=== PATIENT | female | born 1990 | race Two or more races ===

== ENCOUNTER 2020-08-20 05:31 | Emergency (ER) | payer OTHER, SELFPAY ==
[2020-08-20 05:36] VITALS: BP 138/84; PULSE 80; RESP 18; TEMP 37; O2SAT 100; BMI 34.2
[2020-08-20 05:49] LABS: Basophils Percent Auto 0.4 % (0-2); Eosinophils Absolute Auto 0.1 X10*3/uL (0.0-0.4); Eosinophils Percent Auto 1.2 % (0-4); Hematocrit 39.8 % (37-47); Hemoglobin 12.7 g/dl (12.0-16.0); Imm Gran Abs Auto 0.02 X10*3/uL (0.00-0.03); Imm Gran Pct Auto 0.4 % (0.0-0.4); Lymphocytes Absolute Auto 1.5 X10*3/uL (1.2-4.9); Lymphocytes Percent Auto 25.8 % (20-40); MANUAL DIFF FLAG NO; Mean Corpuscular HGB Conc 31.9 g/dl (31.0-35.0); Mean Corpuscular Hemoglobin 27.7 pg (27.0-33.0); Mean Corpuscular Volume 86.9 fL (80-98); Mean Platelet Volume 9.4 fL (9.4-12.3); Monocytes Absolute Auto 0.4 X10*3/uL (0.1-1.2); Monocytes Percent Auto 6.8 % (2-11); Neutrophils Absolute Auto 3.7 X10*3/uL (2.0-8.3); Neutrophils Percent Auto 65.4 % (45-73); Platelet Count 232 X10*3/uL (160-400); Red Blood Count 4.58 X10*6/uL (4.20-5.50); Red Cell Distribution Width 13.2 % (11.0-16.0); White Blood Count 5.6 X10*3/uL (4.8-10.8)
--- NOTE | 2020-08-20 06:06 | PC.NURSE ---
This scientific technical writer protocolled lab work to assist with midigating wait time. Pt then stated to this rn, that she had waited 1/2 hr and did not want to wait any longer. This scientific technical writer attempted to convince patient to remain in ED for evaluation. Pt stated she would rather go home. Patient ambulated with steady gait to exit. Pt appeared in no apparent distress. Time 0606.
[2020-08-20 06:13] LABS: Alanine Aminotransferase 21 U/L (0-31); Albumin Level 4.6 g/dL (3.5-5.0); Alkaline Phosphatase 85 U/L (39-117); Anion Gap 16 (12-20); Aspartate Amino Transferase 15 U/L (5-31); Bilirubin Total < 0.2 mg/dL (0.0-1.0); Blood Urea Nitrogen 13 mg/dL (9-16); Calcium 9.2 mg/dL (8.4-10.2); Carbon Dioxide 24 mmol/L (22-29); Chloride 104 mmol/L (96-108); Creatinine Clr Calc Pharmacy 102.3; Estimated Glomerular Filt Rate > 60; Glucose Random 128 mg/dL (60-115); Lipase 16 U/L (8-78); Sodium 140 mmol/L (135-145); Total Protein 7.3 g/dL (6.5-8.0)
== END 2020-08-20 06:16 | disposition left against medical advice (07) ==
PROVIDERS: Emergency Provider Emergency Medicine
DX: R10.9 Unspecified abdominal pain (principal); R11.10 Vomiting, unspecified
CPT/HCPCS: 36415; 80053; 83690; 85025; 99282; 99283

== ENCOUNTER 2024-11-20 15:55 | Outpatient (AMB) | payer OTHER, SELFPAY ==
--- OUTSIDE RECORDS SUMMARY | 2024-11-20 15:58 | XMS_ITS | Clinical Summary ---
Author Organization [facility] Address [address] [place] [phone] Phone Care Team Providers Care Hotel Services Sales Representative Name Role Phone Pcp, Unknown Primary Care Provider Unavailabl e Allergies No known active allergies Medications ondansetron (ZOFRAN-ODT) 4 MG disintegrating tablet Take 1 tablet (4 mg total) by mouth every 8 (eight) hours as needed for nausea. 10 tablet Active Social History Tobacco Use Types Packs/Day Years Used Date Smoking Tobacco: Never Assessed Education Answer Date Recorded Are you interested in more education? Not on drake e 09/01/2022 Are you concerned about learning? Not on file 09/01/2022 No 09/01/2022 No 09/01/2022 Digital Access Answer Date Recorded No 10/02/2022 No 10/02/2022 Reliable internet access at home? Not on file 10/02/2022 Device with a working camera? Not on file Comments Unknown Sex and Gender Information Value Date Recorded Sex Assigned at Not on file Legal Sex Female 6:24 AM EDT Gender Identity Not on file Sexual Orientation Not on file Last Filed Vital Signs Vital Sign Reading Time Taken Comments Blood Pressure 126/86 08/20/2020 9:30 AM EDT Pulse 74 08/20/2020 6:31 AM EDT Temperature 36.9 C (98.4 F) 08/20/2020 6:31 AM EDT Respiratory Rate 18 08/20/2020 9:30 AM EDT Oxygen Saturation 99% 08/20/2020 9:30 AM EDT Inhaled Oxygen Concentration - - Weight 76.7 kg (169 lb) 08/20/2020 6:31 AM EDT Height 152.4 cm (5') 08/20/2020 6:31 AM EDT Body Mass Index 33.01 08/20/2020 6:31 AM EDT Plan of Treatment Not on file Medical Devices Not on file Insurance [address] [place], [place] [id number] [place], [place] [id number] [facility] Member Subscriber Plan / Payer (Ef fective 2020-Present) Name:Oanh Burkett Relation to Subscriber:Self Name:Oanh Burkett Payer ID:Not on file Type:HMO Address: [place] [id number] [facility] [address] [address] [address] [place] [address] HMO Care Teams Hotel Services Sales Representative Relationship Specialty Start Date End Date Pcp, Unknown PCP - General 08/20/20 Additional Source Comments The information contained in this document represents components of the legal health record. It is not the complete legal health record.[facility]
[2024-11-20 16:01] VITALS: BP 122/74; PULSE 80; O2SAT 97; BMI 39.1
--- NOTE | 2024-11-20 16:01 | AM.OFFWIN_ITS ---
Intake Vital Signs 11/20/24 16:01 Height 5 ft Weight 200 lb BMI 39.1 BP 122/74 Blood Pressure Location Lt brachial Position Sitting Pulse 80 Pulse Source Pulse Oximeter Pulse Oximetry (%) 97 Oxygen Delivery Method Room Air Intake Visit Reasons: EP Bump on RT breast Intake Note: pt is here for right breast bump, since 3 days ago. denies injury or any discharge. patient states theres redness, hot to touch, and some swelling Allergies No Known Allergies Allergy (Verified 11/20/24 16:02) Do you need a note to return to daycare/school/sports/work: No HPI HPI Comments History of Present Illness Details This is a 34-year-old female presenting for evaluation of pain and redness on her right breast that she first noticed 3 days ago. She has an 8 month old son however has not breast fed for the past 7 months. She denies having any fevers or chills however states the pain has worsened and the redness has spread. Patient denies having any nipple discharge. [facility] Medical History (Updated 11/20/24 @ 16:38 by Denise Nelson PA-C) No active medical problems Surgical History (Updated 08/20/20 @ 05:39 by Tahmina Escalante) Previous section Review of Systems Const All systems reviewed & are unremarkable except as noted in HPI and below Reports no additional complaints Eyes Reports no additional complaints ENT Reports no additional complaints Card Reports no additional complaints Resp Reports no additional complaints GI Reports no additional complaints Reports no additional complaints Musc Reports no additional complaints Skin/Breast Reports breast skin changes, Reports breast pain, Reports breast mass and Reports erythema Neuro Reports no additional complaints Psych Reports no additional complaints Endo Reports no additional complaints Lawrence/Lymph Reports no additional complaints Aller/Immun Reports no additional complaints Physical Exam Vital Signs: BMI result Body Mass Index 39.1 Const General: cooperative, healthy appearing, comfortable, no acute distress, well developed, alert, awake and Physically active; No ill appearing Nutritional Appearance: well nourished Orientation/consciousness: patient oriented x3 Limitations: no limitations Skin Other: There is macular erythema extending laterally from the right breast with a 1.5cm indurated lesion at the 10:00 position of the right areola that is tender to touch. No fluctuance or discharge. Erythema extends 7cm laterally from the right areola and surrounds the superior aspect of the areola with a total dimension of 13cm. Lesion is warm and tender to touch. No nipple discharge from the right breast. Neuro General: patient oriented x3 Psych Appearance: grossly normal Mental Status: mental status grossly normal Insight: Good insight present (Psych) Judgement: Good judgement present (Psych) Assessment & Plan Assessment & Plan (1) Periductal mastitis of right breast: Comment: Margins of the erythema are marked with a surgical marker. Cellulitis vs. Pe riductal Mastitis. Patient will be discharged home with antibiotic therapy and strict return precautions. Code(s): N60.41 - Mammary duct ectasia of right breast Plan: Augmentin 875 mg b.i.d. x7 days, Tylenol as needed for discomfort and warm compresses 4-5 times daily. Recommend follow up with PCP or walk-in clinic in 3-4 days, sooner for significant worsening of the erythema. Medications: New amoxicillin-pot clavulanate 875-125 mg 1 tab PO BID 14 tabs 0RF Coding Level of Care Code New Pt Level 4 (27335) Diagnoses Periductal mastitis of right breast N60.41
== END 2024-11-20 16:22 | disposition home or self-care (01) ==
PROVIDERS: Visit Provider Physician Assistant
DX: N60.41 Mammary duct ectasia of right breast (principal)

== ENCOUNTER → 2024-11-20 15:55 | Outpatient (BNVA) | payer OTHER, SELFPAY | PROVIDERS: Visit Provider Physician Assistant | DX: N60.41 Mammary duct ectasia of right breast (principal) | CPT/HCPCS: 99202 ==

== ENCOUNTER 2024-11-22 08:37 | Emergency (ER) | payer OTHER, SELFPAY ==
--- NOTE | ~2024-11-22 | US_ITS ---
CLINICAL HISTORY: ? abscess Limited soft tissue ultrasound, right breast. Indication: Infection. Comparison: None. Findings: A region of erythema at a proximally 10:00 a.m., 4 cm from the nipple is imaged. There is an ovoid, ill-defined phlegmonous region with peripheral vascularity and small pockets of fluid. A tract is noted to the skin surface. Impression: Irregular, peripherally vascular phlegmonous change with developing abscess and drainage tract to the skin surface. Mammographic follow-up is recommended to ensure resolution and exclude inflammatory breast cancer although this is considered extremely unlikely. This document has been electronically signed by: Geoffrey Forde MD on 11/22/2024 10:32:39
[2024-11-22 08:39] VITALS: BP 121/68; PULSE 75; RESP 16; TEMP 36.2; O2SAT 98; BMI 37.8
--- NOTE | 2024-11-22 08:56 | ED.GENADULT ---
HPI - General Adult General Chief complaint: General Medical Stated complaint: R Side Breast Pain Mastitis Time Seen by Provider: 11/22/24 08:56 Source: patient, RN notes reviewed and old records reviewed Mode of arrival: ambulatory Limitations: no limitations History of Present Illness ED Provider: Jean-Claude HPI narrative: Patient is a 34y/o female presenting to the emergency department with complaint of ongoing right breast pain, with associated purulent/sanguinous drainage for the past 5 days. Seen on 11/20 and started on Augmentin. He states that she has taken 3 doses if he Augmentin thus far, 1 Saturday night and 2 yesterday. States that the drainage is new. Has not been breast-feeding for the past 8 months. Complains of severe pain to the area. Denies fevers, chills, body aches. MD complaint: right breast pain Onset (ago): day(s) Related Data Previous Rx's ?Medication ?Instructions ?Recorded amoxicillin 875 mg-potassium 1 tab PO BID #14 tabs 11/20/24 clavulanate 125 mg tablet doxycycline hyclate 100 mg tablet 100 mg PO BID #14 tabs 11/22/24 Allergies Allergy/AdvReac Type Severity Reaction Status Date / Time No Known Allergies Allergy Verified 11/22/24 08:40 Review of Systems Review of Systems: As per hpi Yes all other systems are reviewed and are negative Constitutional: Constitutional: Reports as per HPI [facility] Past Medical History Medical History (Updated 11/22/24 @ 11:17 by Flores Bermeo NP) No active medical problems Surgical History (Updated 08/20/20 @ 05:39 by Tahmina Escalante) Previous section Social History Social History Advance Directives: No Advance Directives Information Provided: No Physical Exam ED Vital Signs: Vital Signs - 24 hr 11/22/24 08:39 11/22/24 10:00 Temperature 97.2 F 98.5 F Pulse Rate 75 77 Respiratory Rate 16 18 Blood Pressure 121/68 103/70 Pulse Oximetry 98 97 Oxygen Delivery Method Room Air Room Air BMI result Body Mass Index 37.8 Vital signs have been reviewed and appear to be correct. Blood pressure normal. Heart rate normal. Respiratory rate normal. Temperature normal. Oxygen saturation normal. Const General: cooperative, healthy appearing and no acute distress Orientation/consciousness: oriented to person, oriented to place, oriented to time and patient oriented x3 Limitations: no limitations HENMT Head: Yes normocephalic and Yes atraumatic Ears: external ears normal General nose exam: Normal external nose present Face and sinus: Yes face symmetric Mouth: oropharynx normal and moist mucous membranes Throat: Yes uvula midline Eyes Pupils: Equal, round and reactive pupils present Neck Neck: Yes normal visual inspection and Yes supple Chest Other: Exam chaperoned by ROSA Vital. Chest/axillae images:  1. large area of erythema and warmth to right lateral breast with central abscess draining purulent/sanguinous fluid, extremely TTP Resp Effort & Inspection: normal respiratory effort and able to speak in complete sentences Auscultation: clear to auscultation bilaterally Cardio Rate: regular rate Rhythm: regular rhythm Heart sounds: S1 normal heart sound present and S2 normal heart sound present GI Palpation (GI): Soft to palpation and nontender Auscultation: normoactive bowel sounds General: Yes no CVA tenderness Back/Spine/Pelvis Back: no CVA tenderness Skin General skin exam: elasticity normal and turgor normal Neuro General: oriented to person, oriented to place, oriented to time, patient oriented x3, moves all extremities, no focal motor deficits and CN's II-XI intact bilaterally Cranial nerves: Yes Equal, round and reactive pupils present Cognition (Neuro): normal cognition Extrem General: Yes full ROM, Yes no pedal edema and Yes no calf tenderness Psych Mental Status: mental status grossly normal Affect: normal affect Thought process: Normal thought process present Medications Administered Discontinued Medications Generic Name Dose Route Start Last Admin Trade Name Filiberto PRN Reason Stop Dose Admin Ondansetron HCl 4 mg 11/22/24 09:15 11/22/24 09:33 Ondansetron Odt 4 Mg Tab.Rapdis TRANSLINGU 11/22/24 09:16 4 mg ONCE ONE Administration Oxycodone HCl 5 mg 11/22/24 09:15 11/22/24 09:33 Oxycodone Hcl Immed Release 5 Mg Tablet PO 11/22/24 09:16 5 mg ONCE ONE Administration Medical Decision Making Medical Decision Making [facility] Narrative: Patient is a 34y/o female presenting to the emergency department with complaint of ongoing right breast pain, with associated purulent/sanguinous drainage for the past 5 days. On exam patient is awake, A+Ox3, VS WNL, afebrile, normal neurological exam without focal deficits, physical exam findings as above. Given reported symptoms and physical exam findings, initial differential includes but is not limited to cellulitis, abscess, deep space infection. Labs notable for slight leukocytosis, no significant electrolyte abnormalities. Abscess is spontaneously draining. U/S notable for irregular, peripherally vascular phlegmonous region with developing abscess, with drainage tract to skin surface. My interpretation is in agreement with the radiologist's interpretation. Results discussed with patient and all questions answered. Will add doxycycline for additional coverage. Advised patient to monitor the area closely, multiple times per day for any spreading of erythema or warmth outside of the outlined area, or fevers/chills and to return if this occurs. Will refer to general surgery if area stops draining spontaneously. Follow up with PCP. Patient verbalized understanding of and agreement with plan. Differential Diagnosis Differential Diagnoses: The differential diagnosis associated with the presentation includes As per [facility] Admission/Observation Consideration of admission/observation: Escalation of care including admission/observation considered Patient would have been admitted to the hospital had their clinical presentation warranted hospital admission. Lab Data [facility] Lab Attestation statement: I reviewed the patient's lab results. As per [facility] 11/22/24 08:59 11/22/24 08:59 Labs: Lab Results 11/22/24 11/22/24 Range/Units 08:59 09:37 WBC 10.9 H (4.8-10.8) X10*3/uL RBC 4.48 (4.20-5.50) X10*6/uL Hgb 12.1 (12.0-16.0) g/dl Hct 37.0 (37.0-47.0) % MCV 82.6 (80.0-98.0) fL MCH 27.0 (27.0-33.0) pg MCHC 32.7 (31.0-35.0) g/dl RDW 14.6 (11.0-16.0) % Plt Count 264 (160-400) X10*3/uL MPV 9.3 L (9.4-12.3) fL Immature Gran % (Auto) 0.6 H (0.0-0.4) % Neut % (Auto) 67.8 (45-73) % Lymph % (Auto) 21.9 (20-40) % Shannon % (Auto) 6.9 (2-11) % Eos % (Auto) 2.3 (0-4) % Baso % (Auto) 0.5 (0-2) % Lymph # (Auto) 2.4 (1.2-4.9) X10*3/uL Shannon # (Auto) 0.8 (0.1-1.2) X10*3/uL Eos # (Auto) 0.3 (0.0-0.4) X10*3/uL Baso # (Auto) 0.1 (0.0-0.2) X10*3/uL Abs Immat Gran (auto) 0.07 H (0.00-0.03) X10*3/uL Absolute Neuts (auto) 7.4 (2.0-8.3) x10*3/uL Absolute Nucleated RBC 0.000 (0.0-0.012) X10*3/uL Nucleated RBC % (auto) 0.0 (0.0-0.2) /100WBC Sodium 139 (135-145) mmol/L Potassium 4.6 (3.3-5.1) mmol/L Chloride 109 H (96-108) mmol/L Carbon Dioxide 23 (22-29) mmol/L Anion Gap 12 (12-20) BUN 8 L (9-16) mg/dL Creatinine 0.63 (0.5-1.4) mg/dL Estim Creat Clear Calc 131.4 Estimated GFR > 60 Random Glucose 109 (60-115) mg/dL Calcium 8.8 (8.4-10.2) mg/dL Total Bilirubin 0.4 (0.0-1.0) mg/dL AST 22 (5-31) U/L ALT 35 H (0-31) U/L Alkaline Phosphatase 109 (39-117) U/L Total Protein 7.4 (6.5-8.0) g/dL Albumin 4.2 (3.5-5.0) g/dL Urine Color Yellow Urine Appearance Clear Urine pH 6.0 (5.0-9.0) Ur Specific [place] 1.015 (1.005-1.025) Urine Protein Negative (Neg-Trace) mg/dL Urine Glucose (UA) Negative (Negative) mg/dL Urine Ketones Negative (Negative) mg/dL Urine Blood Negative (Negative) Urine Nitrite Negative (Negative) Ur Leukocyte Esterase Negative (Negative) Independent Interpretation I performed an independent interpretation of an: Ultrasound Interpretation: U/S notable for irregular, peripherally vascular phlegmonous region with developing abscess, with drainage tract to skin surface. Radiology Impression Discussion of test interpretation with radiology: I have reviewed the radiologist's reading. Radiologist Impression: Limited soft tissue ultrasound, right breast. Indication: Infection. Comparison: None. Findings: A region of erythema at a proximally 10:00 a.m., 4 cm from the nipple is imaged. There is an ovoid, ill-defined phlegmonous region with peripheral vascularity and small pockets of fluid. A tract is noted to the skin surface. Impression: Irregular, peripherally vascular phlegmonous change with developing abscess and drainage tract to the skin surface. Mammographic follow-up is recommended to ensure resolution and exclude inflammatory breast cancer although this is considered extremely unlikely. External Record Review External record reviewed: Inpatient record, Office record and Outpatient record Prescription Management I considered prescription management with: Antibiotic Discharge Plan Discharge Clinical Impression: Abscess of breast, Cellulitis of breast Patient Disposition: Home, Self-Care Instructions: Doxycycline (By mouth), Cellulitis (ED), Abscess (ED) Additional Instructions: You have been evaluated in the emergency department today for skin infection, also known as cellulitis. There is also an abscess, which is a collection of infected fluid. Your abscess is currently draining on it's own which is good. We recommend that you continue to take the antibiotics previously prescribed to you, and we are also adding a 2nd antibiotic for additional bacterial coverage. Take all medications for the full course as prescribed even if your symptoms improve. Continue to apply warm compresses to the affected area but do not attempt to pop or squeeze the area as this can worsen the infection. Return to the ER immediately if the area of redness increases beyond the border. You can use Tylenol or ibuprofen per package instructions every 6 hours as needed for pain. If necessary, you can alternate these medications so that you can take one medication every 3 hours. For instance, at noon take ibuprofen, then at 3:00 p.m. take Tylenol, then at 6:00 p.m. take ibuprofen. Please schedule an appointment for follow-up with your primary care physician as soon as possible. If the abscess stops draining on it's own, you may need to follow up with general surgery. Return to the emergency department if you experience recurrent vomiting, fevers greater than 100.4? F, increasing area of redness, warmth around the area, foul-smelling discharge from the area, increased tenderness around the area, or any other concerning symptoms. Prescriptions: New doxycycline hyclate 100 mg tablet 100 mg PO BID Qty: 14 0RF No Action amoxicillin-pot clavulanate 875-125 mg tablet 1 tab PO BID Qty: 14 0RF Referrals: [facility] General Surgeons [Provider Group, General Surgery] Clinical Impression: Abscess of breast Print Language: Guinean
[2024-11-22 09:03] LABS: MANUAL DIFF FLAG NO
[2024-11-22 09:04] LABS: Hematocrit 37.0 % (37.0-47.0); Hemoglobin 12.1 g/dl (12.0-16.0); Imm Gran Abs Auto 0.07 X10*3/uL (0.00-0.03); Imm Gran Pct Auto 0.6 % (0.0-0.4); Lymphocytes Absolute Auto 2.4 X10*3/uL (1.2-4.9); Mean Corpuscular HGB Conc 32.7 g/dl (31.0-35.0); Mean Corpuscular Hemoglobin 27.0 pg (27.0-33.0); Mean Corpuscular Volume 82.6 fL (80.0-98.0); NRBC Abs Auto 0.000 X10*3/uL (0.0-0.012); NRBC Pct Auto 0.0 /100WBC (0.0-0.2); Platelet Count 264 X10*3/uL (160-400); Red Blood Count 4.48 X10*6/uL (4.20-5.50); White Blood Count 10.9 X10*3/uL (4.8-10.8)
[2024-11-22 09:22] LABS: Alanine Aminotransferase 35 U/L (0-31); Albumin Level 4.2 g/dL (3.5-5.0); Alkaline Phosphatase 109 U/L (39-117); Anion Gap 12 (12-20); Aspartate Amino Transferase 22 U/L (5-31); Blood Urea Nitrogen 8 mg/dL (9-16); Calcium 8.8 mg/dL (8.4-10.2); Carbon Dioxide 23 mmol/L (22-29); Chloride 109 mmol/L (96-108); Creatinine Clr Calc Pharmacy 131.4; Estimated Glomerular Filt Rate > 60; Potassium 4.6 mmol/L (3.3-5.1); Sodium 139 mmol/L (135-145); Total Protein 7.4 g/dL (6.5-8.0)
[2024-11-22] MEDS: oxyCODONE HCl Immed Release 5 MG TABLET PO (09:33)
[2024-11-22 10:00] VITALS: BP 103/70; PULSE 77; RESP 18; TEMP 36.9; O2SAT 97
[2024-11-22 10:02] LABS: Appearance Urine Clear; Glucose Urine UA Negative (Negative); PH 6.0 (5.0-9.0); Specific Gravity - Urine 1.015 (1.005-1.025)
[2024-11-22 11:33] VITALS: BP 103/70; PULSE 77; RESP 18; TEMP 36.9; O2SAT 97
== END 2024-11-22 11:33 | disposition home or self-care (01) ==
PROVIDERS: Emergency Provider Emergency Medicine
DX: N61.1 Abscess of the breast and nipple (principal); N61.0 Mastitis without abscess
CPT/HCPCS: 36415; 76642; 80053; 81003; 85025; 99284

== ENCOUNTER → 2024-11-22 09:15 | Outpatient (BNV) | payer OTHER, SELFPAY | PROVIDERS: Emergency Provider Emergency Medicine; Visit Provider Radiology Vascular & Interventional Radiology | DX: N61.1 Abscess of the breast and nipple (principal) | CPT/HCPCS: 76642 ==